=== PATIENT | female | born 1960 | race Caucasian/White ===

== ENCOUNTER 2018-09-29 05:14 | Day surgery (SDC) | payer MEDICAID ==
[2018-09-25 15:32] LABS: BASOPHILS % (AUTO) 0.6 % (0-1); EOSINOPHILS # (AUTO) 0.2 X10'3 (0-0.9); EOSINOPHILS % (AUTO) 1.9 % (0-6); LYMPHOCYTES # (AUTO) 2.2 X10'3 (1.1-4.8); LYMPHOCYTES % (AUTO) 26.4 % (21-51); MEAN CORPUSCULAR HEMOGLOBIN 30.5 PG (27.0-31.0); MEAN CORPUSCULAR HGB CONC 34.2 % (33.0-36.5); MEAN CORPUSCULAR VOLUME 89.1 FL (78-98); MEAN PLATELET VOLUME 8.5 FL (7.4-10.4); MONOCYTES # (AUTO) 0.4 X10'3 (0-0.9); MONOCYTES % (AUTO) 5.4 % (2-12); NEUTROPHILS # (AUTO) 5.4 X10'3 (1.8-7.7); NEUTROPHILS % (AUTO) 65.7 % (42-75); PRE OP HEMATOCRIT 39.3 % (35.0-45.0); PRE OP HEMOGLOBIN 13.4 g/dL (12.0-16.0); PRE OP PLATELET COUNT 302 X10'3 (140-440); RED BLOOD COUNT 4.41 X10'6 (4.20-5.60); RED CELL DISTRIBUTION WIDTH 13.3 % (11.5-14.5)
[2018-09-25 15:44] LABS: PRE OP INR 0.9 INR; PRE OP PROTIME 9.4 SECONDS (9.0-12.0)
[2018-09-25 15:47] LABS: ALBUMIN 3.5 G/DL (3.4-5.0); ALKALINE PHOSPHATASE 115 IU/L (46-116); BLOOD UREA NITROGEN 17 MG/DL (7-18); BUN/CREATININE RATIO 19.3 (6.6-38.0); CALCIUM 8.9 MG/DL (8.5-10.1); CHLORIDE 104 MMOL/L (99-107); CREATININE 0.88 MG/DL (0.40-0.90); PRE OP ALT 36 U/L (30-65); PRE OP ANION GAP 11 (8-16); PRE OP AST 19 U/L (10-37); PRE OP BILIRUB, TOTAL 0.2 MG/DL (0.0-1.0); PRE OP GLUCOSE 97 MG/DL (70-104); PRE OP POTASSIUM 3.6 MMOL/L (3.4-5.1); PRE OP SODIUM 143 MMOL/L (135-145); TOTAL CARBON DIOXIDE 27.6 MMOL/L (24-32); eGFR 66 ML/MIN
[2018-09-29] VITALS (17 sets, daily range): BP systolic 123–190; BP diastolic 41–100
[~2018-09-29] VITALS: Ht 160 cm; Wt 57.4 kg
[~2018-09-29 05:14] MED LIST: CHOL10002 PO; ESTR0.5T PO; LORA10TA61 PO; LOSA50TA64 PO; MULT-1085 PO; ringers solution, lacted 1,000 ML IV SCH
[2018-09-29] MEDS ORDERED: ceFOXitin 2 GM ADDvantage bag 100 ML IV ONE (05:30)
[2018-09-29] MEDS ORDERED: famotidine 20mg tablet PO ONE (05:30)
[2018-09-29] MEDS ORDERED: LIDOcaine 1% (10mg/ml) 2ml vial ONE (05:37)
[2018-09-29] MEDS ORDERED: clindamycin phosphate 40gm vag cream ONE (06:50)
[2018-09-29] MEDS ORDERED: morphine 10mg/ml inj. ONE (06:51)
[2018-09-29] MEDS ORDERED: ceFAZolin 1000mg inj ONE (06:51)
[2018-09-29] MEDS ORDERED: BUPIVAcaine/PF 2.5mg/ml (0.25%) 10ml vial ONE (06:52)
[2018-09-29] MEDS ORDERED: vasoPRESSIN 20 units/ml inj. ONE (06:52)
[2018-09-29] MEDS ORDERED: LIDOcaine 1% 30ml preserv. free vial ONE (06:52)
[2018-09-29] MEDS ORDERED: propofol inj 20 ML IV ONE (08:07)
[2018-09-29] MEDS ORDERED: midazolam 2 mg/2 ml injection ONE (08:07)
[2018-09-29] MEDS ORDERED: rocuronium 10mg/ml inj IV ONE (08:07)
[2018-09-29] MEDS ORDERED: fentaNYL /PF 50mcg/ml 5ml ampule ONE (08:07)
[2018-09-29] MEDS ORDERED: sevoflurane 250ml liquid IH ONE (08:16)
[2018-09-29] MEDS ORDERED: metoprolol tartrate 1mg/ml inj IV ONE (09:18)
[2018-09-29] MEDS ORDERED: ringers solution, lacted 1,000 ML IV SCH (09:28)
[2018-09-29] MEDS ORDERED: morphine 4 MG/ML inj SYRINge IV PRN ×2 (09:30)
[2018-09-29] MEDS ORDERED: meperidine/PF 25mg/ml syringe IV PRN ×2 (09:30)
[2018-09-29] MEDS ORDERED: ondansetron/PF 4mg/2ml inj IV PRN ×2 (09:30→10:40)
[2018-09-29] MEDS ORDERED: proCHLORperazine 10 MG/2 ml inj IV PRN (09:30)
[2018-09-29] MEDS ORDERED: ketorolac trometh. 30mg/ml inj. IV PRN (10:40)
[2018-09-29] MEDS ORDERED: HYDROcodone/acetaminophen 5mg/325mg tablet PO PRN ×2 (10:40)
[2018-09-29] MEDS ORDERED: temazepam 15mg capsule PO PRN (10:40)
[2018-09-29] MEDS ORDERED: bisacodyl 10mg suppository rectal RC PRN (10:40)
[2018-09-29] MEDS ORDERED: diphenhydrAMINE 50 mg/ml inj IV PRN (10:40)
[2018-09-29] MEDS ORDERED: normal saline 500ml IV soln 500 ML IV PRN (10:40)
[2018-09-29] MEDS ORDERED: dexamethasone sod phosphate 4mg/ml inj. ONE (10:44)
[2018-09-29] MEDS ORDERED: glycopyrrolate 0.2mg/ml inj ONE (10:44)
[2018-09-29] MEDS ORDERED: neostigmine methylsulfate 1 MG/ML 10ml vial ONE (10:44)
[2018-09-29] MEDS ORDERED: ondansetron/PF 4mg/2ml inj ONE (10:44)
--- NOTE | 2018-09-29 10:48 | NUR ---
Received from OR via , accompanied by Anesthesiologist DR WAYNE and report given by Anesthesiolgist. AWAKENS TO VOICE. VITALS STABLE. DRESSINGS DI. ERLINDA PAIN. ABD SOFT. PRASAD WITH CLEAR URINE.
[2018-09-29] MEDS: meperidine/PF 25mg/ml syringe IV PRN ×3 (11:02→12:35)
[2018-09-29] MEDS ORDERED: CADD PCA waste documentation MC SCH (11:20)
[2018-09-29] MEDS ORDERED: naloxone 0.4 mg/ml inj IV PRN (11:20)
[2018-09-29] MEDS: HYDROmorphone/NS 1 mg/ml CADD 50 ML IV SCH ×3 (11:41→23:21)
--- NOTE | 2018-09-29 11:58 | NUR ---
Report called to receiving nurse. Transferred via BED Belongings . Special Issues communicated to receiving nurse. AWAKE AND ORIENTED. VITALS STABLE. DRESSINGS DI. STATES PAIN IMPROVING. TO SURGICAL RM 360A AT THIS TIME.
--- NOTE | 2018-09-29 12:06 | NUR ---
Patient in room . I have received report from PIYUSH Leon and had the opportunity to ask questions and assume patient care. Awaiting patient arrival.
--- NOTE | 2018-09-29 12:41 | NUR ---
Demerol given and reassessed in OR.
[2018-09-29] MEDS: ringers solution, lacted 1,000 ML IV SCH ×2 (12:55→17:40)
[2018-09-29] MEDS: simethicone 80mg chew tab PO SCH ×2 (12:58→17:39)
--- NOTE | 2018-09-29 16:21 | NUR ---
Post op vitals completed.
--- NOTE | 2018-09-29 18:39 | NUR ---
Problems reprioritized. Patient report given, questions answered & plan of care reviewed with PIYUSH wilson.
--- NOTE | 2018-09-29 18:52 | NUR ---
Patient in room [facility]. I have received report from PIYUSH Quevedo and had the opportunity to ask questions and assume patient care. Addendum: 09/29/18 at 1853 by Neema Crisostomo RN Amended: Links added.
[2018-09-29] MEDS: docusate sod 100mg capsule PO SCH (19:50)
[2018-09-30] VITALS (8 sets, daily range): BP systolic 111–149; BP diastolic 47–70
[2018-09-30] MEDS: ringers solution, lacted 1,000 ML IV SCH ×3 (02:37→14:35)
[2018-09-30] MEDS: HYDROmorphone/NS 1 mg/ml CADD 50 ML IV SCH ×2 (04:21→05:43)
--- NOTE | 2018-09-30 06:10 | NUR ---
Problems reprioritized. Patient report given, questions answered & plan of care reviewed with PIYUSH Quevedo. Addendum: 09/30/18 at 0611 by Neema Crisostomo RN Amended: Links added.
--- NOTE | 2018-09-30 06:17 | NUR ---
Patient in room [facility]. I have received report from PIYUSH Reardon and had the opportunity to ask questions and assume patient care.
[2018-09-30] MEDS: docusate sod 100mg capsule PO SCH (07:08)
[2018-09-30] MEDS: simethicone 80mg chew tab PO SCH ×2 (07:08→12:37)
[2018-09-30] MEDS ORDERED: losartan 50mg tablet PO SCH (08:00)
[2018-09-30 08:32] LABS: BASOPHILS # (AUTO) 0.1 X10'3 (0-0.2); BASOPHILS % (AUTO) 0.4 % (0-1); EOSINOPHILS # (AUTO) 0.1 X10'3 (0-0.9); EOSINOPHILS % (AUTO) 0.5 % (0-6); HEMATOCRIT 34.1 % (35.0-45.0); HEMOGLOBIN 11.9 g/dl (12.0-16.0); LYMPHOCYTES # (AUTO) 2.1 X10'3 (1.1-4.8); LYMPHOCYTES % (AUTO) 14.4 % (21-51); MEAN CORPUSCULAR HEMOGLOBIN 30.8 PG (27.0-31.0); MEAN CORPUSCULAR HGB CONC 34.9 % (33.0-36.5); MEAN CORPUSCULAR VOLUME 88.3 FL (78-98); MEAN PLATELET VOLUME 8.4 FL (7.4-10.4); MONOCYTES # (AUTO) 0.8 X10'3 (0-0.9); MONOCYTES % (AUTO) 5.8 % (2-12); NEUTROPHILS # (AUTO) 11.5 X10'3 (1.8-7.7); NEUTROPHILS % (AUTO) 78.9 % (42-75); PLATELET COUNT 276 X10'3 (140-440); RED BLOOD COUNT 3.86 X10'6 (4.20-5.60); RED CELL DISTRIBUTION WIDTH 12.8 % (11.5-14.5); WHITE BLOOD COUNT 14.6 X10'3 (4.5-11.0)
--- NOTE | 2018-09-30 10:15 | NUR ---
When I started her straight cath, I noticed that there was a small clot that I had to remove. Noted there was bright red blood (approx 10cc) on her arpit after the procedure. Let RN know.
--- NOTE | 2018-09-30 12:00 | NUR ---
Pt has passed 3 blood clots and saturating pads. Dr. Woodson aware. Ordered to place parada cath now. Will continue to monitor.
--- NOTE | 2018-09-30 12:04 | NUR ---
Placed a 16 fr parada catheter due to urine retention, parada was placed to gravity, had 275cc clear yellow urine return, noted small blood clot when cleaning patient, clot removed, noted bright red bleeding. After parada placed, patient stated there was abdominal cramping. Reported to Sheryl PICKETT.
--- NOTE | 2018-09-30 16:00 | NUR ---
PATIENT TO OR WITH DR MENDIOLA
[2018-09-30] MEDS ORDERED: fentaNYL/PF 50MCG/1 ML 2ML syringe ONE (16:18)
[2018-09-30] MEDS ORDERED: midazolam 2 mg/2 ml injection ONE (16:19)
[2018-09-30] MEDS ORDERED: propofol inj 20 ML IV ONE (16:19)
--- NOTE | 2018-09-30 16:51 | NUR ---
SPOKE WITH DR MENDIOLA, HE STATES HE IS DISCHARGING THE PATIENT FROM RECOVERY. ALL BELONGINGS TAKEN TO RECOVERY FROM PATIENTS ROOM.
--- NOTE | 2018-09-30 16:52 | NUR ---
Received from OR via , accompanied by Anesthesiologist DR WAYNE and report given by Anesthesiolgist. AWAKE AND ERLINDA PAIN. VITALS STABLE. DRESSINGS DI. ABD SOFT. PRASAD WITH CLEAR URINE.
[2018-09-30] MEDS ORDERED: ringers solution, lacted 1,000 ML IV SCH (17:01)
[2018-09-30] MEDS ORDERED: morphine 4 MG/ML inj SYRINge IV PRN ×2 (17:05)
[2018-09-30] MEDS ORDERED: meperidine/PF 25mg/ml syringe IV PRN ×3 (17:05)
[2018-09-30] MEDS ORDERED: ondansetron/PF 4mg/2ml inj IV PRN (17:05)
[2018-09-30] MEDS ORDERED: proCHLORperazine 10 MG/2 ml inj IV PRN (17:05)
--- NOTE | 2018-09-30 17:32 | NUR ---
AWAKE AND ORIENTED. VITALS STABLE. DRESSINGS DI. ERLINDA PAIN. HOME WITH HER SPOUSE AT THIS TIME.
[2018-09-30] MEDS ORDERED: CADD PCA waste documentation MC SCH (17:50)
== END 2018-09-30 17:32 | disposition home or self-care (01) ==
LOC: PRE-OP 05:14 → SUR 3N 10:42 → PAS 09-30 17:32
PROVIDERS: ATTEND Specialist
DX: N81.4 Uterovaginal prolapse, unspecified (principal); T81.31XA Disruption of external operation (surgical) wound, not elsewhere classified, initial encounter; Y83.8 Other surgical procedures as the cause of abnormal reaction of the patient, or of later complication, without mention of misadventure at the time of the procedure; Y92.89 Other specified places as the place of occurrence of the external cause; N39.46 Mixed incontinence; N73.6 Female pelvic peritoneal adhesions (postinfective); L83 Acanthosis nigricans; N72 Inflammatory disease of cervix uteri; N81.2 Incomplete uterovaginal prolapse; I10 Essential (primary) hypertension; N95.2 Postmenopausal atrophic vaginitis; Z87.891 Personal history of nicotine dependence; Z88.5 Allergy status to narcotic agent; Z90.722 Acquired absence of ovaries, bilateral; Z79.891 Long term (current) use of opiate analgesic; Z98.890 Other specified postprocedural states; Z79.899 Other long term (current) drug therapy; Z82.49 Family history of ischemic heart disease and other diseases of the circulatory system; Z83.3 Family history of diabetes mellitus; Z82.61 Family history of arthritis; Z83.49 Family history of other endocrine, nutritional and metabolic diseases; Z80.9 Family history of malignant neoplasm, unspecified
CPT/HCPCS: 12020; 36415; 49329; 57240; 57283; 57288; 58550; 80053; 82948; 85025; 85610; 85730; 86885; 86900; 86901; A6255; A6402; C1771; J0690; J0694; J1100; J1170; J2175; J2250; J2270; J2405; J2704; J2710; J3010; J3490; J7120; A4315; A4355; A6250; A7000; G0378; J7030